=== PATIENT | female | born 1975 | race Caucasian/White ===

== ENCOUNTER 2021-12-14 16:59 | Emergency (ER) | payer OTHER, SELFPAY ==
[2021-12-14 17:11] VITALS: BP 149/72; PULSE 87; RESP 16; TEMP 36.5; O2SAT 100
--- NOTE | 2021-12-14 17:23 | ED.BACK ---
HPI - Back Pain/Injury General Chief Complaint: Back Pain/Injury Stated Complaint: Lower Back pain Time Seen by Provider: 12/14/21 17:30 Source: patient and RN notes reviewed Mode of arrival: ambulatory Limitations: no limitations History of Present Illness HPI Narrative: 46-year-old female presents with concern for low back pain. 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 She reports walking eases the pain, getting up from sitting makes the pain worse. Reports she took ibuprofen without relief. She denies loss of bowel or bladder function, abdominal pain, perianal anesthesia, weakness in any extremity, fever. Denies history of back problems before. Denies direct trauma MD elicited complaint: back pain Related Data Home Medications Medication Instructions Recorded Confirmed levothyroxine 112 mcg PO DAILY 12/14/21 12/14/21 Allergies Allergy/AdvReac Type Severity Reaction Status Date / Time No Known Allergies Allergy Verified 12/14/21 17:30 Review of Systems Review of Systems: CONSTITUTIONAL: Denies malaise, chills, sweats, or fever. CARDIOVASCULAR: Denies chest pain, palpitations, or edema. RESPIRATORY: Denies cough or dyspnea. GASTROINTESTINAL: Denies abdominal pain, nausea, vomiting, diarrhea, loss of bowel function GENITOURINARY: Denies dysuria, hematuria, frequency, loss of bladder function. SKIN: Denies rash or itching. MUSCULOSKELETAL: Reports left low back pain NEUROLOGIC: Denies numbness, weakness, or headache. All systems reviewed & are unremarkable except as noted in HPI and below PMFSH Comments At time of signature, agree with nursing past medical, surgical, social and family history. There is no relevant family history pertinent to the presenting complaint Exam Narrative: GENERAL: Well-appearing, well-nourished, and in no acute distress. HEAD: Normocephalic, atraumatic. EYES: PERRLA and EOMI. NECK: Supple. No lymphadenopathy. CHEST: Clear to auscultation. No respiratory distress. HEART: Regular rate and rhythm. Distal pulses palpable and equal, cap refill <3 seconds ABDOMEN: Soft, nontender, nondistended, normal active bowel sounds, no palpable or pulsatile masses. No CVA tenderness MUSCULOSKELETAL: Normal range of motion and strength in all extremities; 5/5 strength with hip flexion and extension, dorsiflexion and extension, knee flexion and extension, plantar flexion and extension (4/5 strength with left hip flexion). Normal sensation in dermatomal distributions with sensitivity to light touch and pain. No midline back tenderness to palpation. No paraspinal tenderness. Transfers from lying to sitting to standing. SKIN: Warm, dry, no rash. No ecchymosis, erythema, open wounds to back. NEURO: No focal deficits. Alert and oriented x3. Reflexes intact. Normal gait. PSYCH: Normal mood and affect Course Course Emergency Course: Patient is aware of diagnosis, understands and agrees to treatment plan. Anticipatory guidance given. Patient agrees to follow-up as directed and is aware of reasons to seek care at the emergency department. Portions of this record may have been created with voice recognition software Level of Care: Express Care Visit Reevaluation(s) Reevaluation #1: Ketorolac injection given with some relief of symptoms Date: 12/14/21 Time: 18:03 Vital Signs Vital signs: Vital Signs Temperature 97.7 F 12/14/21 17:11 Pulse Rate 87 12/14/21 17:11 Respiratory Rate 16 12/14/21 17:11 Blood Pressure 149/72 H 12/14/21 17:11 Pulse Oximetry 100 12/14/21 17:11 Temperature 97.7 F 12/14/21 17:11 Pulse Rate 87 12/14/21 17:11 Respiratory Rate 16 12/14/21 17:11 Blood Pressure 149/72 H 12/14/21 17:11 Pulse Oximetry 100 12/14/21 17:11 Reviewed. MDM - Back Pain/Injury MDM Narrative Medical decision making narrative: No risk factors or findings concerning for epidural abscess, diskitis, vertebral o
[2021-12-14] MEDS: KETOROLAC (*BKC) 60 MG/2 ML VIAL IM (17:47)
== END 2021-12-14 18:07 | disposition home or self-care (01) ==
PROVIDERS: Emergency Provider Nurse Practitioner
DX: M54.50 Low back pain, unspecified (principal); E03.9 Hypothyroidism, unspecified; H54.62 Unqualified visual loss, left eye, normal vision right eye
CPT/HCPCS: 96372; 99213; G0463; J1885

== ENCOUNTER 2022-05-28 16:23 | Emergency (ER) | payer OTHER, SELFPAY ==
[2022-05-28 16:51] VITALS: BP 128/67; PULSE 89; RESP 16; TEMP 36.4; O2SAT 100
--- NOTE | 2022-05-28 18:13 | ED.BACK ---
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 Patient has had chronic low back pain since November of this year, has been following with physical therapy and also with her primary care provider. States that her pain initially improved with a round of physical therapy and NSAIDs, she went back to work as usual and her pain returned. States that she has been unable to walk up the past 2 days due to the pain. She attended her physical therapy session today and was referred to the emergency department due to the severity of her pain. Denies relief after [place] and naproxen. Additionally notes that she has been having urinary retention and incontinence which is new for her; states she will suddenly be urinating and isn't aware of it. Additionally notes numbness around her groin. Has had MRI in past but the MRI was prior to the urinary complaints and saddle anesthesia. <OSMAR Rouse Last Filed: 05/29/22 02:28> Related Data Home Medications: Home Medications Medication Instructions Recorded Confirmed levothyroxine 112 mcg tablet 112 mcg PO DAILY 12/14/21 12/14/21 <OSMAR Rouse Last Filed: 05/29/22 02:28> Allergies/Adverse Reactions: Allergies Allergy/AdvReac Type Severity Reaction Status Date / Time No Known Allergies Allergy Verified 05/28/22 17:47 <OSMAR Rouse Last Filed: 05/29/22 02:28> Review of Systems Review of Systems: Gen: Denies fevers or chills Eyes: Denies eye pain or visual change ENT: Denies congestion Respiratory: Denies shortness of breath or cough CV: Denies chest pain or palpitations GI: Denies abdominal pain nausea, emesis or diarrhea, denies fecal incontinence : reports urinary retention and incontinence. 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 CARDIOVASCULAR: 2+ DP and PT pulses. Regular rate and rhythm without murmurs rubs or gallops. ABDOMINAL: Soft, nontender, nondistended, no rebound or guarding MUSCULOSKELETAL: Able to move left foot but does note weakness and pain with raising left leg. Sensation intact over entirety of left leg. Straight leg raise positive on the left. : Good rectal tone. Perianal sensation intact. NEURO: Awake and alert. Following commands, speech normal, no focal deficits SKIN: Warm, dry. No rashes lesions or abrasions PSYCHIATRIC: Normal affect/mood <Maddy Aragon PA-C - Last Filed: 05/29/22 02:28> Course LENDING ADVISOR/PA Physician Supervision For this patient encounter, I reviewed the LENDING ADVISOR or PA documentation, treatment plan, and medical decision making <Valeriy Mckinney MD - Last Filed: 05/29/22 08:28> Consultations Consultation #1: Spoke with Dr. Oakes, neurosurgery at [facility], recommends emergent MRI; will contact transfer center <Maddy Aragon PA-C - Last Filed: 05/29/22 02:28> Date: 05/28/22 <Maddy Aragon PA-C - Last Filed: 05/29/22 02:28> Time: 18:45 <Maddy Aragon PA-C - Last Filed: 05/29/22 02:28> Consul
[2022-05-28 19:50] VITALS: RESP 18; O2SAT 97
== END 2022-05-28 19:50 | disposition short-term general hospital (02) ==
PROVIDERS: Emergency Provider Emergency Medicine
DX: M54.16 Radiculopathy, lumbar region (principal)
CPT/HCPCS: 96374; 99284; J1100

== ENCOUNTER 2025-05-23 11:45 | Emergency (ER) | payer OTHER, SELFPAY ==
--- NOTE | ~2025-05-23 | CT_ITS ---
CT brain wo con Ordering provider: Miah Lopez III DO History: 50 years Female with . head injury . Comparison: June 06, 2018. Technique: CT of the head without contrast. Radiation reduction technique utilized.The dose-length pr oduct was 681 mGy-cm. FINDINGS: BRAIN PARENCHYMA AND CSF SPACES: Mild leukoaraiosis and diffuse cortical atrophy. Mild atheromatous d isease. No midline shift, mass effect or hemorrhage. The brain parenchyma and CSF spaces are otherwi se normal. VISUALIZED PARANASAL SINUSES: Well aerated. MASTOIDS: Well aerated. BONES: The bones appear intact. SOFT TISSUES: Visualized nasopharynx is normal. Superficial soft tissues are normal. Left orbital pr osthesis is noted. IMPRESSION: No acute intracranial findings. Reviewed, dictated and finalized at location A.
--- OUTSIDE RECORDS SUMMARY | 2025-05-23 11:48 | XMS_ITS | Clinical Summary ---
Author Organization [facility] Administrative Offices Address [address] [place] [address] Care Team Providers Care Design Maintenance Engineer Name Role Phone Unavailable Primary Care Provider Unavailabl e Social History Tobacco Use Types Packs/Day Years Used Date Smoking Tobacco: Never Assessed Comments Unknown Sex and Gender Information Value Date Recorded Sex Assigned at Not on file Legal Sex Female 10:02 AM CDT Gender Identity Not on file Sexual Orientation Not on file Plan of Treatment Health Maintenance Due Date Last Done Comments DTAP/TDAP/TD VACCINES (1 - Tdap) 1992 HEPATITIS B VACCINES (1 of 3 - 19+ 3-dose series) 02/13 HPV/Cotest (21-29) 1994 CERVICAL CANCER SCREENING 2003 HPV/Cotest (30-65) 2003 PAP SMEAR 2003 BREAST CANCER SCREENING 2013 COLORECTAL SCREENING 2018 Colorectal Cancer Screening 2018 FIT-DNA Q 3 years 2018 FIT/FOBT Q 1 year 2018 Flex Sig/CT Colonography Q 5 years 2018 ZOSTER VACCINE (1 of 2) 2023 INFLUENZA VACCINE (#1) 2025
--- OUTSIDE RECORDS SUMMARY | 2025-05-23 11:48 | XMS_ITS | Encounter Summary ---
Author Organization [facility] Health Address [address] [place] [address] Care Team Providers Care Foam Dispenser Name Role Phone Unavailable Primary Care Provider Unavailabl e Prior Encounters Date Type Department Care Team Description 06/23/2021 Travel 06/23/2021 10:00 AM CDT Office Visit [facility] [address] [place] [address] Kay Ramos DMD 06/16/2021 Travel 06/16/2021 11:00 AM CDT Office Visit [facility] [address] [place] [address] Kay Ramos DMD 06/05/2021 Travel 06/05/2021 8:00 AM CDT Office Visit [facility] [address] [place] [address] Kay Ramos DMD Plan of Treatment Not on file Procedures Procedure Name Priority Date/Time Associated Diagnosis Comments NC X-RAY Routine 06/23/2021 10:00 AM CDT 11 CEMENT CROWN Routine 06/23/2021 10:00 AM CDT NC X-RAY Routine 06/23/2021 10:00 AM CDT 10 CEMENT CROWN Routine 06/23/2021 10:00 AM CDT NC X-RAY Routine 06/23/2021 10:00 AM CDT 9 CEMENT CROWN Routine 06/23/2021 10:00 AM CDT NC X-RAY Routine 06/23/2021 10:00 AM CDT 8 CEMENT CROWN Routine 06/23/2021 10:00 AM CDT NC X-RAY Routine 06/23/2021 10:00 AM CDT 7 CEMENT CROWN Routine 06/23/2021 10:00 AM CDT NC X-RAY Routine 06/23/2021 10:00 AM CDT 6 CEMENT CROWN Routine 06/23/2021 10:00 AM CDT 11 CORE BUILDUP, INCLUDING ANY PINS WHEN REQUIRED Routine 06/16/2021 11:00 AM CDT 11 CROWN PORC ANT Routine 06/16/2021 11: 00 AM CDT 10 CORE BUILDUP, INCLUDING ANY PINS WHEN REQUIRED Routine 06/16/2021 11:00 AM CDT 10 CROWN PORC ANT Routine 06/16/2021 11: 00 AM CDT 9 CORE BUILDUP, INCLUDING ANY PINS WHEN REQUIRED Routine 06/16/2021 11:00 AM CDT 9 CROWN PORC ANT Routine 06/16/2021 11:0 0 AM CDT 8 CORE BUILDUP, INCLUDING ANY PINS WHEN REQUIRED Routine 06/16/2021 11:00 AM CDT 8 CROWN PORC ANT Routine 06/16/2021 11:0 0 AM CDT 7 CORE BUILDUP, INCLUDING ANY PINS WHEN REQUIRED Routine 06/16/2021 11:00 AM CDT 7 CROWN PORC ANT Routine 06/16/2021 11:0 0 AM CDT 6 CORE BUILDUP, INCLUDING ANY PINS WHEN REQUIRED Routine 06/16/2021 11:00 AM CDT 6 CROWN PORC ANT Routine 06/16/2021 11:0 0 AM CDT DIAGNOSTIC CASTS Routine 06/05/2021 8:00 AM CDT INTRAORAL PHOTO Routine 06/05/2021 8:00 AM CDT INTRAORAL PHOTO Routine 06/05/2021 8:00 AM CDT INTRAORAL PHOTO Routine 06/05/2021 8:00 AM CDT INTRAORAL PHOTO Routine 06/05/2021 8:00 AM CDT PANORAMIC RADIOGRAPHIC IMAGE Routine 06/05/2021 8:00 AM CDT INTRAORAL - COMPREHENSIVE SERIES OF RADIOGRAPHIC IMAGES Routine 06/05/2021 8:00 AM CDT COMPREHENSIVE ORAL EVALUATION - NEW OR ESTABLISHED PATIENT Routine 06/05/2021 8:00 AM CDT Visit Diagnoses Not on file Insurance [email or web address]
--- OUTSIDE RECORDS SUMMARY | 2025-05-23 11:48 | XMS_ITS | Clinical Summary ---
Author Organization [facility] [employer] Address [address] [place] [address] Care Team Providers Care Cdl Driver Name Role Phone Anastasia Gabriel Primary Care Provi cecy Source Comments [facility] [employer],non-owned Affiliates and Associated Physician Practices is amultiple site organization consisting of ambulatory clinics and hospital sitesin [place], [place], [place] and [place]. This disclosure is being madepursuant to the Care Everywhere program and may not contain all information available regarding this patient. Last updated 18.[facility] [employer] Allergies No known active allergies Medications * Be aware that medications may not be up to date on this document. Alwaysverify current medications with the patient. levothyroxine (SYNTHROID) 112 MCG tablet Take 1 (one) tablet by mouth daily before breakfast Active DULoxetine 40 MG Take 40 mg by mouth once daily 30 capsule 2 2 Active Additional Information Patient not taking.Reported on 12/18/2024 acetaminophen (TYLENOL) 500 MG tabletIndicati ons:Pain Take 2 (two) tablets by mouth 3 times daily Maximum allowable Acetaminophen amount = 4 Grams (4000 mg) / 24 hours. 180 tablet 1 2 Active lidocaine (LIDODERM) 5 % patch Apply 1 (one) patch to skin every 24 hours 10 patch 2 Active docusate sodium (COLACE) 100 MG capsule Take 1 (one) capsule by mouth once daily 30 capsule 2 Active Additional Information Patient not taking.Reported on 12/18/2024 ubrogepant (Ubrelvy) 100 MG tablet TAKE 1 TABLET BY MOUTH UP TO 2 TIMES PER DAY NEEDED FOR MIGRAINE 2 Active apixaban (Eliquis) 2.5 MG tablet Take 1 (one) tablet by mouth 2 times daily 70 tablet 4 Active Additional Information Patient not taking.Reported on 12/18/2024 polyethylene glycol 3350 (Miralax) 17 g packet Take 17 (seventeen) g by mouth once daily 4 Active Additional Information Patient not taking.Reported on 12/18/2024 famotidine (Pepcid) 20 MG tablet Take 1 (one) tablet by mouth 2 times daily 4 Active vitamin D3 (Cholecacifero l) 125 MCG (5000 UT) tablet Take 1 (one) tablet by mouth once daily 4 Active acetaminophen (Tylenol) 500 MG tabletIndicati ons:Closed bicondylar fracture of distal femur, left, with routine healing, subsequent encounter Take 1 (one) tablet by mouth every 4 hours as needed for Fever or Pain Maximum allowable Acetaminophen amount = 4 Grams (4000 mg) / 24 hours. 90 tablet 3 4 Active oxyCODONE, immediate release, (Roxicodone) 5 MG tabletIndicati ons:Acute Pain Take 1 (one) tablet by mouth every 6 hours as needed (breakthrough pain) Reasons: Acute Pain 42 tablet 4 Active Additional Information Patient not taking.Reported on 12/18/2024 chlorhexidine gluconate (Hibiclens) 4 % solution Apply to affected area 2 times daily 118 mL 4 Active Additional Information Patient not taking.Reported on 12/18/2024 cyclobenzaprin e (Flexeril) 10 MG tablet Take 1 (one) tablet by mouth 3 times daily as needed for Muscle Spasms 30 tablet 4 Active Additional Information Patient not taking.Reported on 12/18/2024 acetaminophen- codeine (Tylenol #3) 300-30 MG tabletIndicati ons:Closed bicondylar fracture of distal femur, left, with routine healing, subsequent encounter Take 1 (one) tablet by mouth every 6 hours as needed for Pain 50 tablet 4 Active Additional Information Patient not taking.Reported on 12/18/2024 gabapentin (Neurontin) 300 MG capsuleIndicat ions:Closed bicondylar fracture of distal femur, left, with routine healing, subsequent encounter Take 1 (one) capsule by mouth 3 times daily 90 capsule 2 4 Active Active Problems Problem Noted Date Diagnosed Date Trauma 12/25/2023 Hypothyroidism, unspecified type 12/25/2023 Closed displaced subtrochant laurel fracture of left femur, initial encounter 12/25/2023 Other migraine without status migrainosus, not i ntractable 12/25/2023 Closed fracture of hip, unsp ecified laterality, initial encounter 06/04/2022 Unable to ambulate 05/29/2022 Bilateral leg weakness 05/29/2022 Acute low back pain with left-sided sciatica Encounters Date Type Department Care Team Description 04/16/2025 10:17 AM CDT - 04/16/2025 11:59 PM CDT Hospital Encounter [facility] [address] [place] [address] Darryl Ureña, Discharge Disposition: Home or Self Care 04/16/2025 10:15 AM CDT Office Visit [facility] - Orthopedics [address] [place] [phone] Darryl Ureña DO Closed bicondylar fracture of distal femur, left, with routine healing, subsequent encounter (Primary Dx) 04/16/2025 Travel 04/10/2025 Orders Only [facility] [address] [place] [phone] Darryl Ureña DO Closed bicondylar fracture of distal femur, left, with routine healing, subsequent encounter from Last 3 Months Immunizations Immunization Administration Dates Next Due INFLUENZA VACCINE, QUADR. (F LUZONE; FLULAVAL; FLUARIX; AFLURIA QUADRIVALENT; 6MO+), 0.5 ML (IIV4) 12/23/2021,09/28/2016 TDAP, HISTORIC VACCINE 12/23/2021 Family History Medical History Relation Name Comments Diabetes - Type 2 Father Hypertension Father Peripheral Neuropathy Father Aneurysm, Aortic Mother Hypertension Mother Relation Name Status Comments Father Mother Social History Tobacco Use Types Packs/Day Years Used Date Smoking Tobacco: Never Smokeless Tobacco: Never Tobacco Cessation:Counseling Given: Not Answered Alcohol Use Standard Drinks/Week Comments Not Currently 0 (1 standard drink = 0.6 oz pur e alcohol) AUDIT-C Answer Date Recorded Q1: How often do you have a drink containing alcohol? Never 12/26/2023 Q2: How many drinks containi ng alcohol do you have on a typical day when you are drinking? Patient does not drink Q3: How often do you have si x or more drinks on one occasion? Never 12/26/2023 Overall Financial Resource Strain (CARDIA) Answe r Date Recorded How hard is it for you to pa y for the very basics like food, housing, medical care, and heating? Not very hard 12/26/2023 PHQ-2 Answer Date Recorded Patient Health Questionnaire-2 Score 1 04/16/2025 [facility] - Occupational Stress Questionnaire Answer Date Recorded Do you feel stress - tense, restless, nervous, or anxious, or unable to sleep at night because your mind is troubled all the time - these days? Only a little 12/26/2023 Hunger Vital Sign Answer Date Recorded Within the past 12 months, y ou worried that your food would run out before you got the money to buy more. Never true 12/26/19 24 Within the past 12 months, t he food you bought just didn't last and you didn't have money to get more. Never true 12/26/2023 PRAPARE - Transportation Answer Date Re corded In the past 12 months, has l ack of transportation kept you from medical appointments or from getting medications? No 12/15 In the past 12 months, has l ack of transportation kept you from meetings, work, or from getting things needed for daily living? No 12/26/2023 Housing Stability Vital Sign Answer Erick e Recorded In the last 12 months, was t here a time when you were not able to pay the mortgage or rent on time? No 12/26/2023 In the last 12 months, how many places have you lived? 1 12/26/2023 In the last 12 months, was t here a time when you did not have a steady place to sleep or slept in a prison (including now)? No 12/26/2023 Comments No Sex and Gender Information Value Date Recorded Sex Assigned at Not on file Legal Sex Female 5:32 AM DISTRIBUTION OPERATIONS SUPERVISOR Gender Identity Not on file Sexual Orientation Not on file Last Filed Vital Signs Vital Sign Reading Time Taken Comments Blood Pressure 119/66 12/29/2023 12:08 PM DISTRIBUTION OPERATIONS SUPERVISOR Pulse 88 12/29/2023 12:08 PM DISTRIBUTION OPERATIONS SUPERVISOR Temperature 37.4 C (99.3 F) 12/29/2023 12:08 PM DISTRIBUTION OPERATIONS SUPERVISOR Respiratory Rate 19 12/29/2023 12:08 PM DISTRIBUTION OPERATIONS SUPERVISOR Oxygen Saturation 94% 12/29/2023 12:08 PM DISTRIBUTION OPERATIONS SUPERVISOR Inhaled Oxygen Concentration - - Weight 127 kg (280 lb) 04/16/2025 2:17 PM CDT Height 160 cm (5' 3) 04/16/2025 2:17 PM CDT Body Mass Index 49.6 04/16/2025 2:17 PM CDT Plan of Treatment Upcoming Encounters Date Type Department Care Team (Late st Contact Info) Description 10/15/2025 10:00 AM DISTRIBUTION OPERATIONS SUPERVISOR Office Visit [facility] - Orthopedics [address] [place] [address], [place] [address] Darryl Ureña, DO [address] [place] [address] [place] [address] Health Maintenance Due Date Last Done Comments COLOGUARD (AGES 45-75) - COLON CA SCREENING 1973 COLON MONITORING 1973 COLONOSCOPY - COLON CA SCREENING 1973 CT COLONOGRAPHY - COLON CA SCREENING 1973 Colorectal Cancer Screening 1973 FIT - COLON CA SCREENING 1973 FLEX SIG - COLON CA SCREENING 1973 HIV SCREENING 1988 HEPATITIS B VACCINE (1 of 3 - 19+ 3-dose series) 1992 PNEUMOCOCCAL VACCINE 50+ (1 of 1 - PCV) 2023 ZOSTER VACCINE (1 of 2) 2023 MAMMOGRAM 02/06/2024 02/05/2022, 02/05/2022 COVID-19 VACCINE (1 - season) 2024 PAP SMEAR 01/12/2025 01/12/2022 INFLUENZA VACCINE (#1) 2025 12/23/2021, 2015 SCREENING FOR DIABETES 12/29/2026 , 12/28/2023, 12/27/2023, Additional history exists LIPID TESTING 05/10/2028 05/10/2023, 12/23/2021 DTAP/TDAP/TD VACCINES (2 - Td or Tdap) 12/23/2031 12/23/2021 HEPATITIS C SCREENING Completed 05/10/2023 DEPRESSION SCREENING Completed 02/12/2025, 02/07/20 24 HIB VACCINE Aged Out No longer eligi ble based on patient's age to complete this topic HPV VACCINE Aged Out No longer eligi ble based on patient's age to complete this topic MENINGOCOCCAL (Group B) VACCINE SHARED DECISION-MAKING Aged Out No longer eligible based on patient's age to complete this topic MENINGOCOCCAL GROUPS A/C/Y/W VACCINE Aged Out No longer eligible based on patient's age to complete this topic Goals Goal Patient Goal Type Associated Problems Recent Progress Patient-Stated? Author Mobility General No Bobby Summers, RN Note: Expected end date: 01/11/2025 The goal is to maintain or improve your mobility at the optimum level for you. Interventions: Complete physical therapy Mobility General No Bobby Summers, DARLING Note: Expected end date: 03/03/2025 The goal is to maintain or improve your mobility at the optimum level for you. Interventions: Complete physical therapy Mobility General No Dayanara Bautista Note: Expected end date: WB- PARTIAL The goal is to maintain or improve your mobility at the optimum level for you. Interventions: Perform independent activity per your ability Medical Devices Implanted Type Area Solid Waste Facility Operator Device Identifier Shelf Expiration Date Model / Serial / Lot Rfna 12 Mm / 240 Mm Standard Bend Implanted:Qty: 1 on 12/25/2023 by Darryl Ureña DO at [facility] Nail Left: Leg Synthes [facility] 06/13/2028 04.233.224S / / [id number] End Caps , For Rfna 0 Mm Implanted:Qty: 1 on 12/25/2023 by Darryl Ureña, DO at [facility] Other (Type not listed) Left: Leg [employer] 06/13/2033 04.233.000S / / [id number] Plate 14 Hl 4 Clmn Thrd Va Cndrl Lt Implanted:Qty: 1 on 12/25/2023 by Darryl Ureña, DO at [facility] Plate Left: Leg [employer] 02.124.415S / / 5 Mm Locking Screw 64 Mm Implanted:Qty: 1 on 12/25/2023 by Darryl Ureña, DO at [facility] Screw Left: Leg [employer] 04.045.064 / / 5 Mm Locking Screw 84 Mm Implanted:Qty: 1 on 12/25/2023 by Darryl Ureña, DO at [facility] Screw Left: Leg [employer] 04.045.084 / / 5 Mm Locking Screw 86 Mm Implanted:Qty: 1 on 12/25/2023 by Darryl Ureña, DO at [facility] Screw Bilater al: Leg [employer] 04.045.086 / / Screw 4.5mm 8mm 34mm Cortx Slf-Tap Lg Implanted:Qty: 1 on 12/25/2023 by Darryl Ureña, DO at [facility] Screw Left: Leg [employer] 214.834 / / Screw 4.5mm 8mm 40mm 3.5mm Slf-Tap Lg Implanted:Qty: 1 on 12/25/2023 by Darryl Ureña, DO at [facility] Screw Left: Leg [employer] 214.840 / / Screw 4.5mm 8mm 42mm Cortx Slf-Tap Lg Implanted:Qty: 1 on 12/25/2023 by Darryl rUeña, DO at [facility] Screw Left: Leg [employer] 214.842 / / 5.0 Mm Variable Angle Locking Screws , Optilink Self-Tapping [address] 28 Mm Implanted:Qty: 1 on 12/25/2023 by Darryl Ureña, DO at [facility] Screw Left: Leg [employer] 42.231.228 / / 5.0 Mm Variable Angle Locking Screws, Optilink Self-Tapping, [address] 65 Mm Implanted:Qty: 1 on 12/25/2023 by Darryl Ureña, DO at [facility] Screw Left: Leg [employer] 42.231.265 / / 5.0 Mm Variable Angle Locking Screws, Optilink Self-Tapping, T25 [address] 80 Mm Implanted:Qty: 1 on 12/25/2023 by Darryl Ureña, DO at [facility] Screw Left: Leg [employer] 42.231.280 / / Screw 3.5mm 5mm 75mm Ft Rvrs Cut Flut Implanted:Qty: 1 on 12/25/2023 by Darryl Ureña, DO at [facility] Screw Left: Leg [employer] [id number] / / Screw 4mm 5mm 75mm 1/3 Thrd Rvrs Cut Implanted:Qty: 1 on 12/25/2023 by Darryl Ureña, DO at [facility] Screw Left: Leg [employer] [id number] / / 5 Mm Locking Screw 38 Mm Implanted:Qty: 1 on 12/25/2023 by Darryl Ureña, DO at [facility] Screw Left: Leg [employer] 04.045.038 / / Shell Actb 52mm Hip 3 Hl Poly R3 Std Implanted:Qty: 1 on 06/07/2022 by Rj Smith MD at [facility] Left: Hip [employer] 12/21/2031 [id number] / / [id number] Screw 6.5mm 25mm Unv Ft Hip Actb Canc Implanted:Qty: 1 on 06/07/2022 by Rj Smith MD at [facility] Left: Hip [employer] 05/12/2030 [id number] / / [id number] Liner Actb R3 0d 52mm 36mm Xlpe Hip Flxb Implanted:Qty: 1 on 06/07/2022 by Rj Smith MD at [facility] Left: Hip [employer] 05/19/2031 [id number] / / [id number] Standard Stem Implanted:Qty: 1 on 06/07/2022 by Rj Smith MD at [facility] Left: Hip [employer] 02/16/2029 75 100 465 / / [id number] Head Fem +0mm 12/14 Tpr 36mm Hip Oxnm Implanted:Qty: 1 on 06/07/2022 by Rj Smith MD at [facility] Left: Hip [employer] 02/28/2032 [id number] / / [id number] Explanted Type Area Solid Waste Facility Operator Device Identifier Shelf Expiration Date Model / Serial / Lot Screw 4.5mm 8mm 26mm Cortx Slf-Tap Lg Explanted:Qty: 1 on 12/25/2023 by Darryl Ureña DO at [facility] Screw Left: Leg [employer] 214.826 / / Wire K 2mm 150mm Troc Pnt Ss Fx Strl Explanted:Qty: 4 on 12/25/2023 by Darryl Ureña DO at [facility] Wire Left: Leg [employer] 04/04/2033 [id number] / / [id number] Procedures Procedure Name Priority Date/Time Associated Diagnosis Comments XR FEMUR LEFT 2VW Routine 04/16/2025 10: 33 AM CDT Closed bicondylar fracture of distal femur, left, with routine healing, subsequent encounter BASIC METABOLIC PANEL (CALCIUM TOTAL) Routine 12/29/2023 2:11 AM DISTRIBUTION OPERATIONS SUPERVISOR Trauma from Last 3 Months or Most Recently Relevant to Health Maintenance Results * XR Femur Left 2Vw (04/16/2025 10:33 AM CDT) Anatomical Region Laterality Modality Lower Extremity Radiographic Macey ging 04/16/2025 3:55 PM CDT Impressions 04/16/2025 3:57 PM CDT IMPRESSION: Further interval healing of the internally fixated distal left femoral shaft fracture since the prior study.. > Interpreting Provider: Wilfredo High MD on 04/16/2025 3:57 PM Narrative 04/16/2025 3:57 PM CDT PROCEDURE: XR FEMUR LEFT 2VW COMPARISON: No relevant available comparison. CLINICAL INFORMATION (none relevant/not provided if blank): Indication: S72.422D: Closed bicondylar fracture of distal femur, left, with routine healing, subsequent encounter S72.432D: Closed bicondylar fracture of distal femur, left, with routine healing, subsequent encounter Additional History: FINDINGS: AP and lateral views of the left femur were obtained and compared to the prior study from 12/18/2024. Left hip arthroplasty components remain well aligned and positioned. Laterally located fixation plate and screws and left femoral intramedullary marysol remain well aligned and positioned. There has been further healing of the distal femoral shaft fracture since the previous study with further maturing new bone formation. The femoral-tibial alignment appears satisfactory on both projections. Procedure Note Wilfredo High MD - 04/16/2025 PROCEDURE: XR FEMUR LEFT 2VW COMPARISON: No relevant available comparison. CLINICAL INFORMATION (none relevant/not provided if blank): Indication: S72.422D: Closed bicondylar fracture of distal femur, left, with routine healing, subsequent encounter S72.432D: Closed bicondylar fracture of distal femur, left, with routine healing, subsequent encounter Additional History: FINDINGS: AP and lateral views of the left femur were obtained and compared to the prior study from 12/18/2024. Left hip arthroplasty components remain well aligned and positioned. Laterally located fixation plate and screws and left femoral intramedullary marysol remain well aligned and positioned.There has been further healing of the distal femoral shaft fracture since the previous study with further maturing new bone formation. Thefemoral-tibial alignment appears satisfactory on both projections. IMPRESSION: Further interval healing of the internally fixated distalleft femoral shaft fracture since the prior study.. > Interpreting Provider: Wilfredo High MD on 04/16/2025 3:57 PM Darryl Ureña DO DIAGNOSTIC IMAGING ORDERABLES Final Result * (ABNORMAL) BASIC METABOLIC PANEL (CALCIUM TOTAL) (12/29/2023 2:11 AM DISTRIBUTION OPERATIONS SUPERVISOR) [facility] BUN 8 7 - 26 mg/dL 12/29/2023 4:13 AM DISTRIBUTION OPERATIONS SUPERVISOR [facility] Creatinine 0.58 0.56 - 0.96 mg/dL 12/29/2023 4:13 AM [facility] Sodium 140 136 - 145 mmol/L 12/29/2023 4:13 AM [facility] Potassium 3.8 3.5 - 4.5 mmol/L 12/29/2023 4:13 AM [facility] Chloride 106 98 - 107 mmol/L 12/29/2023 4:13 AM [facility] CO2 26 22 - 29 mmol/L 12/29/2023 4:13 AM [facility] Glucose 107 70 - 115 mg/dL 12/29/2023 4:13 AM [facility] Calcium 8.1(L) 8.4 - 10.2 mg/dL 12/29/2023 4:13 AM [facility] Anion Gap 8 6 - 16 12/29/2023 4:13 AM [facility] BUN/Creatinine Ratio 14 7 - 23 12/29/2023 4:13 AM [facility] Osmolality Calculated 289 275 - 295 mOsm/kg 12/29/2023 4:13 AM [facility] eGFR by CKD-EPI >90 >=90 mL/min/1.7 3 m2 12/29/2023 4:13 AM [facility] Blood BLOOD SPECIMEN / Unknown Lab Venipuncture / Unknown 12/29/2023 2:11 AM DISTRIBUTION OPERATIONS SUPERVISOR 12/29/2023 3:28 AM [facility] Santino Vicente DO LAB - CHEMISTRY ORDERABLES Final Result Performing Organization Address [facility]/State/ZIP Co de Phone Number [facility] [address] [place] [address] [phone] from Last 3 Months or Most Recently Relevant to Health Maintenance Insurance [facility] WORK[employer] COMP Advance Directives * Full Code (Latest Code Status on File) Date Activated Date Inactivated Comments 12/25/2023 7:05 AM 12/29/2023 7:54 PM * Full Code Date Activated Date Inactivated Comments 06/04/2022 5:20 PM 06/11/2022 5:44 PM * Full Code Date Activated Date Inactivated Comments 05/29/2022 9:47 AM 06/04/2022 3:06 PM Care Teams Cdl Driver Relationship Specialty Start Date End Date Anastasia Gabriel, BEHAVIORAL SCIENCE CHAIR-CUTTER FINISHER [address] [place] [address] PCP - General Nurse Practitioner 09/27/23
--- OUTSIDE RECORDS SUMMARY | 2025-05-23 11:48 | XMS_ITS | Clinical Summary ---
Author Organization [facility] Health Address [address] [place] [address] Care Team Providers Care Law Clerk Name Role Phone Unavailable Primary Care Provider Unavailabl e Allergies No known active allergies Medications thyroid, pork, 113.75 mg tablet Act bela citalopram (CeleXA) 10 mg tablet Take 1 tablet by mouth 1 (one) time each day. 06/24/2020 Active levothyroxine (SYNTHROID, UNITHROID) 112 mcg tablet Take 112 mcg by mouth 1 (one) time each day. 03/16/2021 Active naproxen (NAPROSYN) 500 mg tablet Take 500 mg by mouth 2 (two) times a day if needed. 03/16/2021 Active SUMAtriptan (IMITREX) 50 mg tablet Take 50 mg by mouth. 03/16/2021 Active traMADoL (ULTRAM) 50 mg tablet Take 50-100 mg by mouth every 6 (six) hours if needed. 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 Hidradenitis 10/06/2015 Hyperglycemia 10/06/2015 Hypothyroidism 10/06/2015 Migraine 10/06/2015 Oligomenorrhea 10/06/2015 Social History Tobacco Use Types Packs/Day Years Used Date Smoking Tobacco: Never Assessed Comments Unknown Sex and Gender Information Value Date Recorded Sex Assigned at Not on file Legal Sex Female 10:10 AM PDT Gender Identity Not on file Sexual Orientation Not on file Plan of Treatment Health Maintenance Due Date Last Done Comments Dental Prophylaxis 1973 Dental Oral Exam 12/07/2021 06/05/2021 Dental X-Ray: Bitewings 12/07/2021 06/05/2021 Dental X-Ray: Panoramic 06/06/2024 06/05/2021 Dental X-Ray: Full Mouth 06/09/2024 06/08/2021, 05/15 Procedures Procedure Name Priority Date/Time Associated Diagnosis Comments PANORAMIC RADIOGRAPHIC IMAGE Routine 06/05/2021 8:00 AM CDT INTRAORAL - COMPREHENSIVE SERIES OF RADIOGRAPHIC IMAGES Routine 06/05/2021 8:00 AM CDT COMPREHENSIVE ORAL EVALUATION - NEW OR ESTABLISHED PATIENT Routine 06/05/2021 8:00 AM CDT from Last 3 Months or Most Recently Relevant to Health Maintenance Insurance DENTAL PLANS.[facility] DISCOUNT
[2025-05-23 11:57] VITALS: BP 152/81; PULSE 85; RESP 20; TEMP 36.4; O2SAT 98
[2025-05-23] MEDS: ACETAMINOPHEN 500 MG TABLET 1000 MG PO (12:44)
[2025-05-23 14:31] VITALS: BP 137/87; PULSE 74; RESP 18; TEMP 36.3; O2SAT 98
--- OUTSIDE RECORDS SUMMARY | 2025-05-23 14:41 | XMS_ITS | Encounter Summary ---
Author Organization [facility] Health Address [address] [place] [address] Care Team Providers Care Information Security Systems Instructor Name Role Phone Unavailable Primary Care Provider Unavailabl e Prior Encounters Date Type Department Care Team Description 06/23/2021 Travel 06/23/2021 10:00 AM CDT Office Visit [facility] [address] [place] [address] Kay Ramos DMD 06/16/2021 Travel 06/16/2021 11:00 AM CDT Office Visit [facility] [address] [place] [address] Kay Ramos DMD 06/05/2021 Travel 06/05/2021 8:00 AM CDT Office Visit [facility] [address] [place] [address] Kay Ramos DMD Plan of Treatment Not [...]
--- OUTSIDE RECORDS SUMMARY | 2025-05-23 14:41 | XMS_ITS | Clinical Summary ---
Author Organization [facility] Address [address] [place] [address] Care Team Providers Care Orthotics Technician Name Role Phone Anastasia Gabriel Primary Care Provi cecy Source Comments [facility],non-owned Affiliates and Associated Physician Practices is amultiple site organization consisting of ambulatory clinics and hospital sitesin [place], [place], [place] and [place]. This disclosure is being madepursuant to the Care Everywhere program and may not contain all information available regarding this patient. Last updated 18.[facility] Allergies No known active allergies Medications * [...] - 04/16/2025 11:59 PM CDT Hospital Encounter [facility] [address] [address] [place] [address] Darryl Ureña, Discharge Disposition: Home or Self Care 04/16/2025 10:15 AM CDT Office Visit [facility] - Orthopedics [address] [place] [phone] Darryl Ureña DO Closed bicondylar fracture of distal femur, left, with routine healing, subsequent encounter (Primary Dx) 04/16/2025 Travel 04/10/2025 Orders Only [facility] - [facility] [address] [place] [phone] Darryl Ureña DO Closed bicondylar fracture of [...] Recorded Patient Health Questionnaire-2 Score 1 04/16/2025 [facility] - [...] place to sleep or slept in a jail (including now)? No 12/26/2023 Comments No Sex and Gender Information Value Date Recorded Sex Assigned at Not on file Legal Sex Female 5:32 AM INTERNET SITE DESIGNER Gender Identity Not on file Sexual Orientation Not on file Last Filed Vital Signs Vital Sign Reading Time Taken Comments Blood Pressure 119/66 12/29/2023 12:08 PM INTERNET SITE DESIGNER Pulse 88 12/29/2023 12:08 PM INTERNET SITE DESIGNER Temperature 37.4 C (99.3 F) 12/29/2023 12:08 PM INTERNET SITE DESIGNER Respiratory Rate 19 12/29/2023 12:08 PM INTERNET SITE DESIGNER Oxygen Saturation 94% 12/29/2023 12:08 PM INTERNET SITE DESIGNER Inhaled Oxygen Concentration - - Weight 127 kg (280 lb) 04/16/2025 2:17 PM CDT Height 160 cm (5' 3) 04/16/2025 2:17 PM CDT Body Mass Index 49.6 04/16/2025 2:17 PM CDT Plan of Treatment Upcoming Encounters Date Type Department Care Team (Late st Contact Info) Description 10/15/2025 10:00 AM INTERNET SITE DESIGNER Office Visit [facility] - Orthopedics [address] [place] [address], [place] [address] Darryl Ureña, DO [address] [place] [address] [place] [address] Health Maintenance Due Date Last Done Comments [...] your ability Medical Devices Implanted Type Area Pin Setter Device Identifier Shelf Expiration Date Model / Serial / Lot Rfna 12 Mm / 240 Mm Standard Bend Implanted:Qty: 1 on 12/25/2023 by Darryl Ureña DO at [facility] Nail Left: Leg Synthes [facility] 06/13/2028 04.233.224S / / [id number] End Caps , For Rfna 0 Mm Implanted:Qty: 1 on 12/25/2023 by Darryl Ureña, DO at [facility] Other (Type not listed) Left: Leg [employer] 06/13/2033 04.233.000S / / [id number] Plate 14 Hl 4 Clmn Thrd Va Cndrl Lt Implanted:Qty: 1 on 12/25/2023 by Darryl Ureña, DO at [facility] Plate Left: Leg [employer] 02.124.415S / / 5 Mm Locking Screw 64 Mm Implanted:Qty: 1 on 12/25/2023 by Darryl Ureña, DO at [facility] Screw Left: Leg [employer] 04.045.064 / / 5 Mm Locking Screw 84 Mm Implanted:Qty: 1 on 12/25/2023 by Darryl Ureña, DO at [facility] Screw Left: Leg [employer] 04.045.084 / / 5 Mm Locking Screw 86 Mm Implanted:Qty: 1 on 12/25/2023 by Darryl Ureña, DO at [facility] Screw Bilater al: Leg [employer] 04.045.086 / / Screw 4.5mm 8mm 34mm Cortx Slf-Tap Lg Implanted:Qty: 1 on 12/25/2023 by Darryl Ureña, DO at [facility] Screw Left: Leg [employer] 214.834 / / Screw 4.5mm 8mm 40mm 3.5mm Slf-Tap Lg Implanted:Qty: 1 on 12/25/2023 by Darryl Ureña, DO at [facility] Screw Left: Leg [employer] 214.840 / / Screw 4.5mm 8mm 42mm Cortx Slf-Tap Lg Implanted:Qty: 1 on 12/25/2023 by Darryl Ureña, DO at [facility] Screw Left: Leg [employer] 214.842 / / 5.0 Mm Variable Angle Locking Screws , Optilink Self-Tapping [address] 28 Mm Implanted:Qty: 1 on 12/25/2023 by Darryl Ureña, DO at [facility] Screw Left: Leg [employer] 42.231.228 / / 5.0 Mm Variable Angle Locking Screws, [employer]ink Self-Tapping, [address] 65 Mm Implanted:Qty: 1 on 12/25/2023 by Darryl Ureña, DO at [facility] Screw Left: Leg [employer] 42.231.265 / / 5.0 Mm Variable Angle Locking Screws, [employer] Self-Tapping, T25 [address] 80 Mm Implanted:Qty: 1 on 12/25/2023 by Darryl Ureña, DO at [facility] Screw Left: Leg [employer] 42.231.280 / / Screw 3.5mm 5mm 75mm Ft Rvrs Cut Flut Implanted:Qty: 1 on 12/25/2023 by Darryl Ureña, DO at [facility] Screw Left: Leg [employer] [id number] / / Screw 4mm 5mm 75mm 1/3 Thrd Rvrs Cut Implanted:Qty: 1 on 12/25/2023 by Darryl Ureña, DO at [facility] Screw Left: Leg [employer] [id number] / / 5 Mm Locking Screw 38 Mm Implanted:Qty: 1 on 12/25/2023 by Darryl Ureña, DO at [facility] Screw Left: Leg [employer] 04.045.038 / / Shell Actb 52mm Hip 3 Hl Poly R3 Std Implanted:Qty: 1 on 06/07/2022 by Rj Smith MD at [facility] Left: Hip [employer] 12/21/2031 [id number] / / [id number] Screw 6.5mm 25mm Unv Ft Hip Actb Canc Implanted:Qty: 1 on 06/07/2022 by Rj Smith MD at [facility] Left: Hip [employer] 05/12/2030 [id number] / / [id number] Liner Actb R3 0d 52mm 36mm Xlpe Hip Flxb Implanted:Qty: 1 on 06/07/2022 by Rj Smith MD at [facility] Left: Hip [employer] 05/19/2031 [id number] / / [id number] Standard Stem Implanted:Qty: 1 on 06/07/2022 by Rj Smith MD at [facility] Left: Hip [employer] 02/16/2029 75 100 465 / / [id number] Head Fem +0mm 12/14 Tpr 36mm Hip Oxnm Implanted:Qty: 1 on 06/07/2022 by Rj Smith MD at [facility] Left: Hip [employer] 02/28/2032 [id number] / / [id number] Explanted Type Area Pin Setter Device Identifier Shelf Expiration Date Model / Serial / Lot Screw 4.5mm 8mm 26mm Cortx Slf-Tap Lg Explanted:Qty: 1 on 12/25/2023 by Darryl Ureña DO at [facility] Screw Left: Leg [employer] 214.826 / / Wire K 2mm 150mm Troc Pnt Ss Fx Strl Explanted:Qty: 4 on 12/25/2023 by Darryl Ureña DO at [facility] Wire Left: Leg [employer] 04/04/2033 [id number] / / [id number] Procedures Procedure Name Priority Date/Time Associated Diagnosis Comments XR FEMUR LEFT 2VW Routine 04/16/2025 10: 33 AM CDT Closed bicondylar fracture of distal femur, left, with routine healing, subsequent encounter BASIC METABOLIC PANEL (CALCIUM TOTAL) Routine 12/29/2023 2:11 AM INTERNET SITE DESIGNER Trauma from Last 3 Months or Most [...] METABOLIC PANEL (CALCIUM TOTAL) (12/29/2023 2:11 AM INTERNET SITE DESIGNER) [facility] BUN 8 7 - 26 mg/dL 12/29/2023 4:13 AM INTERNET SITE DESIGNER [facility] Creatinine 0.58 0.56 - 0.96 mg/dL 12/29/2023 4:13 AM [facility] Sodium 140 136 - 145 mmol/L 12/29/2023 4:13 AM [facility] Potassium 3.8 3.5 - 4.5 mmol/L 12/29/2023 4:13 AM [facility] Chloride 106 98 - 107 mmol/L 12/29/2023 4:13 AM [facility] CO2 26 22 - 29 mmol/L 12/29/2023 4:13 AM [facility] Glucose 107 70 - 115 mg/dL 12/29/2023 4:13 AM [facility] Calcium 8.1(L) 8.4 - 10.2 mg/dL 12/29/2023 4:13 AM [facility] Anion Gap 8 6 - 16 12/29/2023 4:13 AM [facility] BUN/Creatinine Ratio 14 7 - 23 12/29/2023 4:13 AM [facility] Osmolality Calculated 289 275 - 295 mOsm/kg 12/29/2023 4:13 AM [facility] eGFR by CKD-EPI >90 >=90 mL/min/1.7 3 m2 12/29/2023 4:13 AM [facility] Blood BLOOD SPECIMEN / Unknown Lab Venipuncture / Unknown 12/29/2023 2:11 AM INTERNET SITE DESIGNER 12/29/2023 3:28 AM [facility] Santino Vicente DO LAB - CHEMISTRY ORDERABLES Final Result Performing Organization Address [facility]/State/ZIP Co de Phone Number [facility] [address] [place] [address] [[email or web address]] [phone] from Last 3 Months or Most Recently Relevant to Health Maintenance Insurance [facility] Advance Directives * Full Code (Latest Code Status on File) Date Activated Date Inactivated Comments 12/25/2023 7:05 AM 12/29/2023 7:54 PM * Full Code Date Activated Date Inactivated Comments 06/04/2022 5:20 PM 06/11/2022 5:44 PM * Full Code Date Activated Date Inactivated Comments 05/29/2022 9:47 AM 06/04/2022 3:06 PM Care Teams Orthotics Technician Relationship Specialty Start Date End Date Anastasia Gabriel, AIR BOX TESTER-COMPENSATOR [address] [place] [address] PCP - General Nurse Practitioner 09/27/23
--- OUTSIDE RECORDS SUMMARY | 2025-05-23 14:41 | XMS_ITS | Clinical Summary ---
Author Organization [facility] Address [address] [facility] [facility] [place] [address] Care Team Providers Care Dictating Machine Transcriber Name Role Phone Unavailable Primary Care Provider [...] Recently Relevant to Health Maintenance Insurance [employer]ENT[employer] DISCOUNT
--- OUTSIDE RECORDS SUMMARY | 2025-05-23 14:41 | XMS_ITS | Clinical Summary ---
Author Organization [facility] Address [address] [place] [address] Care Team Providers Care Ad Taker Name Role Phone Unavailable Primary Care Provider [...]
--- NOTE | 2025-05-23 15:23 | ED_ITS ---
HPI - Head Injury General Chief complaint: Head Injury Stated complaint: hit head with drill Time Seen by Provider: 05/23/25 14:24 History of Present Illness HPI Narrative: Pt was screwing in screw with electric drill and it caught and snapped back and struck her in the forehead. Pt denies LOC. Pt is not on blood thinners. Pt has mild frontal CHAVES. Pt denies neuro sx. Related Data Home Medications ?Medication ?Instructions ?Recorded ?Confirmed ?Last Taken ?Type Blue-Emu Lidocaine Patch 5 % topical DAILY 12/29/23 12/29/23 12/29/23 09:00 History acetaminophen 500 mg tablet 1,000 mg PO TID PRN Pain (Scale 12/29/23 12/29/23 Unknown History Score 4-6) gabapentin 100 mg capsule 200 mg PO TID 12/29/23 12/29/23 12/29/23 13:00 History polyethylene glycol 3350 17 gram 17 g PO DAILY 12/29/23 12/29/23 12/29/23 09:00 History oral powder packet (Miralax) ubrogepant 100 mg tablet (Ubrelvy) 100 mg PO BID PRN Migraine Headache 12/29/23 12/29/23 Unknown History Allergies Allergy/AdvReac Type Severity Reaction Status Date / Time No Known Allergies Allergy Verified 05/23/25 12:01 Review of Systems Review of Systems: All systems reviewed & are unremarkable except as noted in HPI and below PMFSH Social History Social History Smoking status: Never smoker Second hand tobacco smoke exposure: No Alcohol intake: former Substance use: never Do You Feel Safe in your Home?: Yes Lack of Transportation: No Lack of Food: Never True Current Housing: I Have Housing Concerned About Future Housing: No Difficulty Paying Gas/Electric Bills: No Difficulty Paying for Meds: No Currently Unemployed: YES Education: High School Diploma/GED Difficulty w/ Childcare or Family Care: No Living arrangements: with family Occupation/Education: unemployed Gender identity (if verbalized by the patient): Female Sexual Orientation (if Verbalized by the Patient): Straight or Heterosexual Spiritual care concerns: No Agree to blood products: Yes Exam Const: General: healthy appearing and no acute distress Nutritional Appearance: well nourished Orientation/consciousness: patient oriented x3 Limitations: no limitations HENMT: Head: hematoma right frontal Eyes: Conjunctivae: conjunctivae normal EOM: EOMs intact bilaterally Resp: Effort & Inspection: normal respiratory effort Auscultation: clear to auscultation bilaterally Cardio: Rate: regular rate Rhythm: regular rhythm GI: GI Palp: Yes Soft to palpation and No Tenderness to palpation present (GI) Auscultation: normal bowel sounds Skin: General skin exam: normal color Wounds: no wounds Neuro: General: patient oriented x3, moves all extremities, no meningeal signs and no focal motor deficits Cranial nerves: Yes CN's II-XII intact bilaterally Speech: normal speech Extrem: General: normal to inspection and no clubbing, cyanosis or edema Psych: Mental Status: mental status grossly normal Affect: normal affect Attitude: cooperative Course Vital Signs Vital signs: Vital Signs Temperature 97.6 F 05/23/25 11:57 Pulse Rate 85 05/23/25 11:57 Respiratory Rate 20 05/23/25 11:57 Blood Pressure 152/81 H 05/23/25 11:57 Pulse Oximetry 98 05/23/25 11:57 Oxygen Delivery Room Air 05/23/25 11:57 Temperature 97.4 F L 05/23/25 14:31 Pulse Rate 76 05/23/25 16:04 Respiratory Rate 18 05/23/25 16:04 Blood Pressure 134/82 05/23/25 16:04 Pulse Oximetry 98 05/23/25 16:04 Oxygen Delivery Room Air 05/23/25 11:57 MDM - Head Injury MDM Narrative Medical decision making narrative: Pt has hematoma on forehead from minor trauma without LOC. Pt is concerned and wants CT. CT is neg. Home on otc meds. Discharge Plan Discharge Clinical Impression: Closed head injury Patient Disposition: Home Condition: Stable Instructions: Antibiotic Form, Head Injury (ED) Patient Language: Lithuanian Prescriptions: No Action polyethylene glycol 3350 [Miralax] 17 gram Powder In Packet 17 g PO DAILY acetaminophen 500 mg Tablet 1,000 mg PO TID PRN (Reason: Pain (Scale Score 4-6)) gabapentin 100 mg Capsule 200 mg PO TID Ubrelvy 100 mg Tablet 100 mg PO BID PRN (Reason: Migraine Headache) Rx Instructions: as a single dose; may repeat once in >=2 hours after first dose if needed Blue-Emu Lidocaine Patch 5 % topical DAILY melatonin 3 mg Tablet 6 mg PO HS 30 Days Qty: 60 0RF cholecalciferol (vitamin D3) 125 mcg (5,000 unit) Tablet 125 mcg PO DAILY Qty: 30 0RF cyclobenzaprine 10 mg Tablet 10 mg PO TID PRN (Reason: Muscle Spasm) 30 Days Qty: 0 0RF apixaban 2.5 mg Tablet 2.5 mg PO BID 30 Days Qty: 0 0RF Eliquis 2.5 mg Tablet 2.5 mg PO BID 30 Days Qty: 60 0RF famotidine 20 mg Tablet 20 mg PO BID 30 Days Qty: 60 0RF docusate sodium 100 mg Capsule 100 mg PO DAILY 30 Days Qty: 30 0RF morphine 15 mg Tablet Extended Release 15 mg PO Q12HR 7 Days Qty: 14 0RF levothyroxine [Synthroid] 112 mcg Tablet 112 mcg PO DAILY@0630 30 Days Qty: 30 0RF oxycodone 5 mg Tablet 5 mg PO Q6H PRN (Reason: Pain (Scale Score 7-10)) 7 Days Qty: 28 0RF duloxetine [Cymbalta] 20 mg Capsule,Delayed Release(Dr/Ec) 40 mg PO DAILY 30 Days Qty: 60 0RF Follow-up/Referrals: Harvey,NANDINI Luciano [Primary Care Provider] -
[2025-05-23 16:04] VITALS: BP 134/82; PULSE 76; RESP 18; O2SAT 98
== END 2025-05-23 16:06 | disposition home or self-care (01) ==
PROVIDERS: Emergency Provider Emergency Medicine; PCP Nurse Practitioner
DX: S09.90XA Unspecified injury of head, initial encounter (principal); W20.8XXA Other cause of strike by thrown, projected or falling object, initial encounter
CPT/HCPCS: 70450; 99284; A9270